=== PATIENT | female | born 1960 | race Caucasian/White ===

== ENCOUNTER 2020-12-22 19:46 | Observation (INO) | payer OTHER ==
[2020-12-22 22:36] VITALS: BMI 22.4
[2020-12-22] MEDS ORDERED: Senokot S 8.6-50 MG TAB PO PRN (22:39)
[2020-12-22] MEDS ORDERED: HYDROcodone/Acetaminophen 5/325 mg Tablet PO PRN (22:39)
[2020-12-22] MEDS ORDERED: HYDROcodone/Acetaminophen 10/325 mg Tablet PO PRN (22:39)
[2020-12-22] MEDS: Ondansetron PF 4 MG/2 ML Vial IVP PRN (23:09)
[2020-12-23] MEDS ORDERED: Dextrose 50% Abboject 50 ML SYRINGE SLOW IVP PRN (01:18)
[2020-12-23] MEDS ORDERED: Dextrose 5% in Water 1,000 ML IV PRN (01:18)
[2020-12-23] MEDS: Levothyroxine Sodium 25 MCG TAB PO SCH (06:29)
[2020-12-23] MEDS: Ondansetron PF 4 MG/2 ML Vial IVP PRN (07:50)
[2020-12-23] MEDS ORDERED: FLU VACC QS2021-22(6MOS UP)/PF 60 MCG/0.5 ML SYRINGE IM ONE (09:00)
[2020-12-23] MEDS: Famotidine 20 MG TAB PO SCH ×2 (09:47→21:30)
[2020-12-23] MEDS: Liothyronine Sodium 5 MCG TAB PO SCH (09:48)
[2020-12-23] MEDS: Acetaminophen 325 MG TAB PO PRN ×2 (11:46→16:48)
[2020-12-23] MEDS ORDERED: Promethazine 25 MG TAB PO PRN (11:57)
[2020-12-23] MEDS ORDERED: Promethazine HCl 12.5 MG in Sodium Chloride 0.9% 50 ML IVPB PRN (11:57)
[2020-12-23] MEDS ORDERED: traMADol HCl 50 MG TAB PO SCH (12:00)
[2020-12-23 12:53] LABS: #Lymphocytes 1.1 thou/uL (1.20-3.40); #Monocytes 0.4 thou/uL (0.11-0.59); #Neutrophils 5.6 thou/uL (1.40-6.50); %Basophils 0.1 % (0.0-1.0); %Eosinophils 0.3 % (0.0-10.0); %Lymphocytes 15.1 % (21.0-51.0); %Monocytes 6.1 % (0.0-10.0); %Neutrophils 78.4 % (42.0-75.0); Hemoglobin 12.3 g/dL (12.0-16.0); Mean Corpuscular HGB CONC 34.5 g/dL (32.0-36.0); Mean Corpuscular Hemoglobin 32.4 pg (27.0-31.0); Mean Corpuscular Volume 93.9 fL (78.0-98.0); Mean Platelet Volume 7.2 fL (7.4-10.4); Platelet Count 138 thou/uL (130-400); White Blood Cell (WBC) Count 7.2 thou/uL (4.8-10.8)
[2020-12-23 13:31] LABS: Anion Gap 12 mmol/L (10-20); BUN (Urea Nitrogen) 10 mg/dL (9.8-20.1); Calc. Creatinine Clearance 74 mL/min (70-130); Calcium 8.7 mg/dL (7.8-10.44); Carbon Dioxide 23 mmol/L (23-31); Chloride 105 mmol/L (98-107); Glucose 109 mg/dL (80-115); Potassium 3.6 mmol/L (3.5-5.1); Sodium 136 mmol/L (136-145)
[2020-12-23] MEDS ORDERED: Calcitonin,Salmon,Synthetic 200 Units 3.7 ML PUMP L NARE SCH (15:30)
[2020-12-23] MEDS: traMADol HCl 50 MG TAB PO PRN (23:22)
[2020-12-24] MEDS: Acetaminophen 325 MG TAB PO PRN ×2 (02:17→09:10)
[2020-12-24] MEDS: traMADol HCl 50 MG TAB PO PRN ×3 (05:29→16:08)
[2020-12-24] MEDS: Levothyroxine Sodium 25 MCG TAB PO SCH (05:29)
[2020-12-24] MEDS: Liothyronine Sodium 5 MCG TAB PO SCH (08:11)
[2020-12-24] MEDS: Famotidine 20 MG TAB PO SCH (09:10)
[2020-12-24 12:36] VITALS: BP 136/74; TEMP 98.2
[2020-12-24] MEDS ORDERED: Calcitonin,Salmon,Synthetic 200 Units 3.7 ML PUMP R NARE SCH (15:30)
== END 2020-12-24 16:26 | disposition home or self-care (01) ==
LOC: SJJU 19:46
PROVIDERS: ADMIT Student in an Organized Health Care Education/Training Program; ATTEND Internal Medicine
DX: S22.079A Unspecified fracture of T9-T10 vertebra, initial encounter for closed fracture (principal); S22.089A Unspecified fracture of T11-T12 vertebra, initial encounter for closed fracture; S32.019A Unspecified fracture of first lumbar vertebra, initial encounter for closed fracture; S32.029A Unspecified fracture of second lumbar vertebra, initial encounter for closed fracture; S32.039A Unspecified fracture of third lumbar vertebra, initial encounter for closed fracture; S32.049A Unspecified fracture of fourth lumbar vertebra, initial encounter for closed fracture; E03.9 Hypothyroidism, unspecified; E55.9 Vitamin D deficiency, unspecified; R73.9 Hyperglycemia, unspecified; Z79.899 Other long term (current) drug therapy; Z88.0 Allergy status to penicillin; W22.8XXA Striking against or struck by other objects, initial encounter; Y93.89 Activity, other specified
CPT/HCPCS: 36415; 36416; 80048; 82306; 85025; 96374; 96376; G0378; J2405; Q0169